=== PATIENT | female | born 1965 | race Caucasian/White ===

== ENCOUNTER 2017-06-10 18:22 | Emergency (ER) | payer BC ==
[~2017-06-10] VITALS: Ht 167.6 cm; Wt 64.9 kg
--- NOTE | 2017-06-10 18:25 | NUR ---
AAOX3, C/O CHEST PAIN X 10 MIN [employer]. ALSO HAD AN EPISODE OF CP WHILE AT WORK 1230NN PT TOOK HUSBANDS NITRO 1 TAB AT 3PM, ASA 81 MG. RR IS EVEN AND UNLABORED WITH NAD NOTED. SKIN IS WARM AND DRY. PLACED ON THE MONITOR. AWAITING MD FOR EVAL.
--- NOTE | 2017-06-10 18:58 | NUR ---
RECEIVED REPORT FROM CHRISTA HUMPHRIES FOR MARGARET. PT RESTING IN BED WITH NO S/S OF DISCOMFORT NOTED.
--- NOTE | 2017-06-10 19:00 | NUR ---
REPORT GIVEN TO CHRISTA PEREZ FOR MARGARET.
[2017-06-10 19:17] LABS: BASOPHILS % (AUTO) 0.5 % (0.0-2.0); EOSINOPHILS % (AUTO) 1.2 % (0.0-6.0); HEMATOCRIT 38 % (33-45); HEMOGLOBIN 13.3 g/dL (11.5-14.8); LYMPHOCYTES # (AUTO) 3.7 /CMM (0.8-4.8); LYMPHOCYTES % (AUTO) 41.8 % (20.0-44.0); MEAN CORPUSCULAR HGB CONC 35 g/dl (31.0-36.0); MEAN CORPUSCULAR VOLUME 85 fL (82-100); MONOCYTES # (AUTO) 0.7 /CMM (0.1-1.30); MONOCYTES % (AUTO) 7.8 % (2.0-12.0); NEUTROPHILS # (AUTO) 4.2 /CMM (1.8-8.9); NEUTROPHILS % (AUTO) 48.7 % (43.0-81.0); PLATELET COUNT (AUTO) 333 /CMM (150-450); RDW COEFFICIENT OF VARIATION 11.9 (11.5-15.0); WHITE BLOOD COUNT (AUTO) 8.7 K/uL (4.3-11.0)
[2017-06-10 19:28] LABS: CALCIUM, SERUM 10.1 mg/dL (8.5-10.1); CARBON DIOXIDE 24 mmol/L (21-32); CHLORIDE 103 mmol/L (98-107); CREATININE 0.7 mg/dL (0.6-1.3); GLUCOSE 103 mg/dL (74-106); POTASSIUM 3.2 mmol/L (3.5-5.1); SODIUM SERUM 139 mmol/L (136-145); UREA NITROGEN, BLOOD 13 mg/dL (7-18)
[2017-06-10] MEDS ORDERED: ASPIRIN EC 325 MG TABLET.DR PO ONE ×2 (19:30→20:04)
[2017-06-10 19:32] LABS: ALANINE AMINOTRANSFERASE 19 U/L (12-78); ALBUMIN 4.1 g/dL (3.4-5.0); ALKALINE PHOSPHATASE 115 U/L (46-116); ASPARTATE AMINOTRANSFERASE 22 U/L (15-37); BILIRUBIN,DIRECT 0.1 mg/dL (0.0-0.2); BILIRUBIN,TOTAL 0.2 mg/dL (0.2-1.0); TOTAL PROTEIN, SERUM 9.1 g/dL (6.4-8.2)
[2017-06-10 19:34] LABS: TROPONIN I < 0.017 ng/mL (0.00-0.056)
--- NOTE | 2017-06-10 20:25 | NUR ---
Patient is resting comfortably in bed. VSS. No s/s of acute distress noted in pt.
--- NOTE | 2017-06-10 21:38 | NUR ---
Patient is resting comfortably in bed with eyes closed. Easily aroused. VSS. No s/s of discomfort noted in pt. Family member bedside with pt.
--- NOTE | 2017-06-10 22:04 | NUR ---
Patient discharged to home in stable condition. Written and verbal after care instructions given. Patient verbalizes understanding of instruction.IV removed. Catheter intact and site benign. Pressure and 4x4 applied to site. No bleeding noted. VSS upon discharge. Pt ambulated with steady gait out of ER.
[2017-06-10 22:05] VITALS: BP 134/80
== END 2017-06-10 22:07 | disposition home or self-care (01) ==
LOC: ER 18:24
DX: R07.9 Chest pain, unspecified (principal); F41.9 Anxiety disorder, unspecified; I10 Essential (primary) hypertension; Z79.82 Long term (current) use of aspirin; Z96.642 Presence of left artificial hip joint
CPT/HCPCS: 36415; 71046; 80048; 80076; 83880; 84484 ×2; 85025; 93005 ×2; 99285; A4606; Z7610

== ENCOUNTER 2017-10-24 19:52 | Emergency (ER) | payer BC ==
[~2017-10-24] VITALS: Ht 170.2 cm; Wt 63.5 kg
[2017-10-24 21:23] VITALS: BP 127/68
== END 2017-10-24 21:22 | disposition home or self-care (01) ==
LOC: ER 19:57
DX: I10 Essential (primary) hypertension (principal); F41.9 Anxiety disorder, unspecified; Z98.890 Other specified postprocedural states; Z96.642 Presence of left artificial hip joint
CPT/HCPCS: 93005; 99283; A4606; Z7610

== ENCOUNTER 2022-09-11 10:12 | Emergency (ER) | payer BC ==
[~2022-09-11] VITALS: Ht 167.6 cm; Wt 61.2 kg
--- NOTE | 2022-09-11 10:15 | NUR ---
BIB C/O L LOWER BACK PAIN SINCE LAST NIGHT, HURTS WHILE BREATHING, PAIN IS 10/10 ON PAIN SCALE
--- NOTE | 2022-09-11 10:23 | NUR ---
URINE COLLECTED AND SENT
[2022-09-11 10:59] LABS: BILIRUBIN,URINE NEGATIVE (NEGATIVE); COLOR,URINE YELLOW (YELLOW); LEUKOCYTE ESTERASE ,URINE NEGATIVE (NEGATIVE); NITRITE, URINE NEGATIVE (NEGATIVE); PH,URINE 7.5 (5.0-8.0); PROTEIN,URINE TRACE mg/dl (NEGATIVE); UGLUCOSE NEGATIVE (NEGATIVE); UROBILINOGEN,URINE 0.2 EU/dL (0.2)
[2022-09-11 11:03] LABS: BACTERIA,URINE Rare /HPF (None Seen); SQUAMOUS EPITHELIAL CELL,UR Few /HPF (None Seen); WBC,URINE 0-2 /HPF (0-3)
--- NOTE | 2022-09-11 11:15 | NUR ---
IV LINE LEFT AC 18 G
--- NOTE | 2022-09-11 11:20 | NUR ---
BLOOD SAMPLE TAKEN SENT TO LAB
[2022-09-11] MEDS ORDERED: IOHEXOL-300 100 ML VIAL IV ONE (11:23)
[2022-09-11] MEDS ORDERED: IV NS 0.9% 250 ML IV ONE (11:23)
--- NOTE | 2022-09-11 11:24 | NUR ---
TAKEN TO CT VIA WHEELCHAIR
[2022-09-11 11:41] LABS: BASOPHILS % (AUTO) 0.3 % (0.0-2.0); EOSINOPHILS % (AUTO) 0.8 % (0.0-6.0); HEMATOCRIT 36 % (33-45); HEMOGLOBIN 11.9 g/dL (11.5-14.8); LYMPHOCYTES # (AUTO) 1.4 K/uL (0.8-4.8); LYMPHOCYTES % (AUTO) 22.3 % (20.0-44.0); MEAN CORPUSCULAR HGB CONC 33 g/dl (31.0-36.0); MEAN CORPUSCULAR VOLUME 88 fL (82-100); MONOCYTES # (AUTO) 1.2 K/uL (0.1-1.30); MONOCYTES % (AUTO) 19.1 % (2.0-12.0); NEUTROPHILS # (AUTO) 3.5 K/uL (1.8-8.9); NEUTROPHILS % (AUTO) 57.5 % (43.0-81.0); PLATELET COUNT (AUTO) 244 K/uL (150-450); RED BLOOD CELL COUNT(AUTO) 4.03 MIL/uL (4.0-5.2); WHITE BLOOD COUNT (AUTO) 6.2 K/uL (4.3-11.0)
[2022-09-11 11:51] LABS: CALCIUM, SERUM 9.6 mg/dL (8.5-10.1); CREATININE 0.7 mg/dL (0.6-1.3); POTASSIUM 3.7 mmol/L (3.5-5.1)
[2022-09-11] MEDS ORDERED: AZIT250T13 PO (12:07)
--- NOTE | 2022-09-11 12:12 | NUR ---
Patient discharged to home in stable condition. Written and verbal after care instructions given. Patient verbalizes understanding of instruction.
--- NOTE | 2022-09-11 12:12 | NUR ---
IV removed. Catheter intact and site benign. Pressure and 4x4 applied to site. No bleeding noted.
[2022-09-11 12:19] VITALS: BP 121/79; TEMP 98.2
== END 2022-09-11 12:20 | disposition home or self-care (01) ==
LOC: ER 10:12
DX: J18.9 Pneumonia, unspecified organism (principal); I10 Essential (primary) hypertension; F41.9 Anxiety disorder, unspecified; Z98.890 Other specified postprocedural states; Z79.899 Other long term (current) drug therapy; Z20.822 Contact with and (suspected) exposure to COVID-19
CPT/HCPCS: 99285; 71260; 71045; 87426; 85025; 80048; 81001; 36415; J7050; Q9967; C9803

== ENCOUNTER 2022-12-22 12:28 | Emergency (ER) | payer BC ==
[~2022-12-22] VITALS: Ht 167.6 cm; Wt 60.8 kg
[~2022-12-22 12:28] MED LIST: AZIT250T13 PO
[2022-12-22 12:56] LABS: BASOPHILS % (AUTO) 0.4 % (0.0-2.0); EOSINOPHILS # (AUTO) 0.1 K/uL (0.0-0.7); EOSINOPHILS % (AUTO) 1.9 % (0.0-6.0); HEMATOCRIT 36 % (33-45); LYMPHOCYTES # (AUTO) 1.4 K/uL (0.8-4.8); LYMPHOCYTES % (AUTO) 31.7 % (20.0-44.0); MEAN CORPUSCULAR HEMOGLOBIN 30 PG (26.0-33.0); MEAN CORPUSCULAR HGB CONC 33 g/dl (31.0-36.0); MEAN CORPUSCULAR VOLUME 89 fL (82-100); MONOCYTES # (AUTO) 0.5 K/uL (0.1-1.30); MONOCYTES % (AUTO) 12.5 % (2.0-12.0); NEUTROPHILS # (AUTO) 2.3 K/uL (1.8-8.9); NEUTROPHILS % (AUTO) 53.5 % (43.0-81.0); PLATELET COUNT (AUTO) 272 K/uL (150-450); RED BLOOD CELL COUNT(AUTO) 4.07 MIL/uL (4.0-5.2); RED CELL DISTRIBUTION WIDTH 13.6 % (11.5-15.0); WHITE BLOOD COUNT (AUTO) 4.3 K/uL (4.3-11.0)
[2022-12-22 13:04] LABS: CALCIUM, SERUM 9.7 mg/dL (8.5-10.1); CARBON DIOXIDE 25 mmol/L (21-32); CHLORIDE 103 mmol/L (98-107); CREATININE 0.6 mg/dL (0.6-1.3); GLUCOSE 99 mg/dL (74-106); SODIUM SERUM 138 mmol/L (136-145); UREA NITROGEN, BLOOD 12 mg/dL (7-18)
[2022-12-22] MEDS ORDERED: IBUP-1955 PO (15:47)
[2022-12-22] MEDS ORDERED: AMOX-430 PO (15:47)
[2022-12-22] MEDS ORDERED: AZIT250T13 PO (15:47)
[2022-12-22 16:46] VITALS: BP 135/70; TEMP 98.1; O2SAT 100
== END 2022-12-22 16:45 | disposition home or self-care (01) ==
LOC: ER 12:30
DX: Z01.84 Encounter for antibody response examination (principal); J18.1 Lobar pneumonia, unspecified organism; R07.89 Other chest pain; I10 Essential (primary) hypertension; F41.9 Anxiety disorder, unspecified; Z98.890 Other specified postprocedural states; Z79.899 Other long term (current) drug therapy
CPT/HCPCS: 36415; 71045-TC; 80048-TC; 84484-TC; 85025-TC

== ENCOUNTER 2023-07-10 08:44 | Emergency (ER) | payer BC ==
[~2023-07-10] VITALS: Ht 167.6 cm; Wt 64.0 kg
[~2023-07-10 08:44] MED LIST changes: +AMOX-430 PO; +IBUP-1955 PO
[2023-07-10 09:31] LABS: BASOPHILS % (AUTO) 0.4 % (0.0-2.0); EOSINOPHILS % (AUTO) 1.4 % (0.0-6.0); HEMATOCRIT 36 % (33-45); HEMOGLOBIN 12.1 g/dL (11.5-14.8); LYMPHOCYTES # (AUTO) 1.2 K/uL (0.8-4.8); MEAN CORPUSCULAR HEMOGLOBIN 30 PG (26.0-33.0); MEAN CORPUSCULAR HGB CONC 34 g/dl (31.0-36.0); MEAN CORPUSCULAR VOLUME 88 fL (82-100); MONOCYTES # (AUTO) 0.4 K/uL (0.1-1.30); MONOCYTES % (AUTO) 13.4 % (2.0-12.0); NEUTROPHILS # (AUTO) 1.3 K/uL (1.8-8.9); NEUTROPHILS % (AUTO) 45.8 % (43.0-81.0); PLATELET COUNT (AUTO) 258 K/uL (150-450); RED BLOOD CELL COUNT(AUTO) 4.09 MIL/uL (4.0-5.2); RED CELL DISTRIBUTION WIDTH 13.6 % (11.5-15.0); WHITE BLOOD COUNT (AUTO) 2.9 K/uL (4.3-11.0)
[2023-07-10 09:34] LABS: CALCIUM, SERUM 8.8 mg/dL (8.5-10.1); CARBON DIOXIDE 26 mmol/L (21-32); CHLORIDE 103 mmol/L (98-107); CREATININE 0.7 mg/dL (0.6-1.3); GLUCOSE 106 mg/dL (74-106); POTASSIUM 3.8 mmol/L (3.5-5.1); SODIUM SERUM 134 mmol/L (136-145); UREA NITROGEN, BLOOD 13 mg/dL (7-18)
[2023-07-10 09:38] LABS: APPEARANCE,URINE Clear (CLEAR); BILIRUBIN,URINE Negative (NEGATIVE); BLOOD, URINE Moderate Ery/uL (NEGATIVE); COLOR,URINE YELLOW (YELLOW); KETONES,URINE Negative (NEGATIVE); LEUKOCYTE ESTERASE ,URINE Moderate (NEGATIVE); NITRITE, URINE Negative (NEGATIVE); PROTEIN,URINE Negative (NEGATIVE); UGLUCOSE Negative (NEGATIVE); UROBILINOGEN,URINE 0.2 EU/dL (0.2)
[2023-07-10 10:00] LABS: ADD URINE CULTURE YES; BACTERIA,URINE Few /HPF (None Seen)
[2023-07-10 10:01] LABS: SQUAMOUS EPITHELIAL CELL,UR Few /HPF (None Seen)
[2023-07-10 10:52] VITALS: BP 128/70; TEMP 98.2; O2SAT 100
== END 2023-07-10 10:53 | disposition home or self-care (01) ==
LOC: ER 08:44
DX: I10 Essential (primary) hypertension (principal); F41.9 Anxiety disorder, unspecified; Z96.642 Presence of left artificial hip joint; Z90.89 Acquired absence of other organs
CPT/HCPCS: 36415; 71045-TC; 80048-TC; 81001; 84484-TC; 85025-TC; 87086-TC

== ENCOUNTER 2025-01-21 06:36 | Emergency (ER) | payer BC ==
[~2025-01-21] VITALS: Ht 167.6 cm; Wt 64.4 kg
[2025-01-21 07:16] LABS: PLATELET COUNT (AUTO) 213 K/uL (150-450); RED BLOOD CELL COUNT(AUTO) 3.95 MIL/uL (4.0-5.2); RED CELL DISTRIBUTION WIDTH 13.5 % (11.5-15.0); WHITE BLOOD COUNT (AUTO) 4.0 K/uL (4.3-11.0)
[2025-01-21 07:35] LABS: CALCIUM, SERUM 9.3 mg/dL (8.5-10.1); CREATININE 0.8 mg/dL (0.6-1.3); NT-PRO BNP 58 pg/mL (0-125); SODIUM SERUM 143 mmol/L (136-145); UREA NITROGEN, BLOOD 13 mg/dL (7-18)
[2025-01-21] MEDS ORDERED: BENZ-13 PO (08:03)
[2025-01-21 08:13] VITALS: BP 118/66; TEMP 98.7; O2SAT 99
== END 2025-01-21 08:13 | disposition home or self-care (01) ==
LOC: ER 06:41
DX: J06.9 Acute upper respiratory infection, unspecified (principal); R07.89 Other chest pain; I10 Essential (primary) hypertension; R06.02 Shortness of breath; Z82.49 Family history of ischemic heart disease and other diseases of the circulatory system; Z87.01 Personal history of pneumonia (recurrent); Z96.642 Presence of left artificial hip joint
CPT/HCPCS: 36415; 71045-TC; 80048-TC; 83880; 84484-TC; 85025-TC